=== PATIENT | female | born 1960 | race Caucasian/White ===

== ENCOUNTER 2016-11-10 16:30 | Inpatient (IN) | payer OTHER ==
[~2016-11-10] VITALS: Ht 157.5 cm; Wt 75.3 kg
--- NOTE | ~2016-11-10 | OR ---
Unit #: [id number] #: [id number] Patient: ERICTUESDAY [id number] [address] [place], [place] [address] [id number] Reji MR#: [id number] NAME: JEB REYES ROOM: 218 Date of Procedure: 11/12/2016 Admission Date: 11/11/2016 Surgeon: Liam Hernandez M.D. : 1960 Attending Physician: Jacki Saunders M.D. Primary Care Physician: Primary Care Physician No OPERATIVE REPORT ADDITIONAL ATTENDING PHYSICIAN Jacki Saunders M.D. PREOPERATIVE DIAGNOSES Alcoholic cirrhosis with ascites and hepatitis C without any treatment. PROCEDURES PERFORMED Upper gastrointestinal endoscopy. POSTOPERATIVE DIAGNOSES 1. 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 These were in the form of tongues of columnar mucosa in the distal esophagus. 2. There were no esophageal varices seen. 3. Changes of portal hypertensive gastropathy were seen in the gastric fundus. 4. Rest of the examination up to third part of duodenum was normal. RECOMMENDATIONS 1. The patient can be about 2 g sodium high-protein diet. 2. She can be discharged home from GI standpoint on the current dosing of Lasix and Aldactone. The single most important element in her long-term recovery is total and complete sobriety as well as sticking with 2 g sodium high-protein diet at home. SEDATION USED MAC. DESCRIPTION OF PROCEDURE Following detailed explanation of the potential risks and complications of an upper endoscopy, namely perforation, bleeding, and complication related to sedation, the patient was brought to GI lab and laid in the left lateral decubitus position. Lubricated tip of the Olympus video upper endoscope was passed through the bite block into the proximal esophagus under direct vision. The entire esophageal mucosa was examined and the patient was noted to have a short segment of Angeles esophagus. This was in the form of tongues of columnar mucosa near the gastroesophageal junction. No esophageal varices were seen. The scope was then advanced into the gastric cavity and the latter was insufflated. Mucosa of the fundus, body, and antrum examined and changes of portal hypertensive gastropathy were noted in the fundic mucosa. Prepyloric antral area appeared normal. Pylorus was intubated with visualization of the normal Unit #: [id number] #: [id number] Patient: BINDERY CHIEF,TUESDAY duodenal bulb and second and third part of the duodenum. Upon withdrawal and retroflexion, incisura, cardia, and greater curve examined and no additional findings noted. The scope was then withdrawn in the distal esophagus. Biopsies obtained from the distal esophageal mucosa from the Angeles segment and sent for histology. The entire esophageal mucosa was examined all the way up to pharynx. No additional findings noted. The patient tolerated the procedure without any postprocedure complications. Dictated by... Lars Miller/abad TD: 11/12/2016 17:24 JOB #: [id number] CC: Lars Strange M.D. OPERATIVE REPORT Page 1 of 1 X Liam Hernandez MD X PROCEDURE OPERATIVE NOTE
--- NOTE | ~2016-11-10 | CT2 ---
[facility] A Service of [facility] & [facility] RADIOLOGY TEXT RESULTS PATIENT: ERICTUESDAY LOCATION: [facility] 218-01 : [birth year] UNIT #: [id number] AGE: [address]: Jacki Saunders MD SEX: F ORDER DR: [id number] [facility] [address] [place], [place] [address] [id number] I MR#: [id number] Acc #: [id number] NAME: ERIC TUESDAY : 1960 SEX: F STUDY DATE/TIME: 11/10/2016 20:57 UNIT: [facility] ROOM: 218 STUDY DESCRIPTION: CT Abd and Pelv W Cont Attending Physician: Jacki Saunders M.D. Ordering Physician: Leandro Metcalf D.O. Primary Care Physician: No Primary Care Physician MEDICAL IMAGING REPORT This report is preliminary unless electronic signature is present EXAM CT scan of the abdomen and pelvis with contrast, 11/10/2016. HISTORY Abdominal distension since October 2016. Bright red blood after bowel movements for 3 weeks. Hepatitis C. TECHNIQUE Spiral CT was performed through the abdomen and pelvis following intravenous contrast administration only, as per clinician request. This CT exam was performed with one or more of the following radiation dose reduction techniques: automatic exposure control, adjustment of mA and/or kV according to patient size, and iterative reconstruction. FINDINGS ABDOMEN: The exam is limited by the lack of oral contrast. There is fatty infiltration of the liver. The liver demonstrates surface nodularity and prominence of the caudate lobe characteristic of cirrhosis. No cystic or solid mass lesions were seen in the liver. The spleen is normal in size. The pancreas, adrenal glands, and kidneys are normal. The gallbladder is distended and prominent and demonstrates a prominent enhancing wall. There are gallstones along the dependent portion of the gallbladder. If there is clinical concern for cholecystitis, recommend correlation with gallbladder ultrasound. There is no intra or extrahepatic biliary ductal dilatation. PELVIS FINDINGS: There is moderate amount of ascites within the peritoneal cavity. Colonic diverticulosis is noted. Question is raised of some thickening of the wall of the ascending and proximal transverse colon. This may be artifactual and due to under distension of the colon as no oral contrast was administered. Recommend clinical correlation to exclude inflammatory or infectious colitis. No adenopathy is seen. No STS. [facility] A Service of [facility] RADIOLOGY TEXT RESULTS PATIENT: ERIC,TUESDAY LOCATION: [facility] 218-01 : [birth year] UNIT #: [id number] AGE: [address]: Jacki Saunders MD SEX: F ORDER DR: abscess is seen. Images of the lung bases demonstrate atelectasis at the right base. IMPRESSION 1. Exam is severely limited by the lack of oral contrast. 2. Findings characteristic of hepatic cirrhosis. No mass is seen within the liver. 3. Gallbladder is distended and demonstrates a prominent enhancing wall and gallstones are seen along the dependent portion of the gallbladder. If there is clinical concern for cholecystitis, recommend correlation with gallbladder ultrasound. 4. Moderate ascites. 5. Question is raised of some possible thickening of the wall of the ascending colon and transverse colon. This may be artifactual and related to the lack of oral contrast. Recommend clinical correlation to exclude inflammatory or infectious colitis. 6. Portal hypertension with recanalization of the umbilical vein is noted. Dictated by... Lobo Greene M.D. THIS IS AN ELECTRONICALLY VERIFIED REPORT Lobo Greene M.D. at 11/11/2016 10:22 AM CLARI/alfonzo TD: 11/11/2016 09:26 JOB #: [id number] MEDICAL IMAGING REPORT Page 1 of 1 COPY
--- NOTE | ~2016-11-10 | HP ---
Unit #: [id number] #: [id number] Patient: ERIC [id number] [address] [place], [place] [address] [id number] I MR#: [id number] NAME: ERIC TUESDAY ROOM: 218 Age: 56 Sex: F Admission Date: 11/11/2016 : 1960 Attending Physician: Jocelyne Malhotra M.D. Primary Care Physician: No Primary Care Physician HISTORY AND PHYSICAL CHIEF COMPLAINT Ascites and jaundice x1 month. HISTORY This pleasant 56-year-old female with history of hepatitis C, chronic headaches, alcohol abuse, is admitted for abdominal swelling. Patient states that she has been seeing her primary care physician at the [facility] for abdominal welling. Underwent a CT scan. Notes that she has been experiencing darker urine, along with scleral icterus. Presents to this emergency department where she has obvious ascites on exam but a nontender abdomen. CT scan was a limited study but did show cirrhosis, along with gallstones and a distended bladder. Moderate ascites, questionable thickening of the colonic wall. The patient was referred to oral surgery technician as an outpatient but has not yet seen him. Does note bright red blood per rectum, separate from the stool for the past three days. Patient is a heavy drinker, but has cut down to two 6 oz of hard liquor daily. Denies withdrawal symptoms. PAST MEDICAL HISTORY 1. Hepatitis C. 2. Chronic headache. 3. Hypertension. 4. Cervical dysplasia. 5. Rectal and genital warts. 6. D and C. ALLERGIES No known drug allergies. HOME MEDICATIONS P.r.n. ibuprofen 800 mg; Norvasc daily; Chantix. FAMILY HISTORY COPD, CAD. SOCIAL HISTORY The patient lives alone with her cat. She smokes about 1/2 pack per day of tobacco. Was drinking up to half of a fifth a day but cut down to two 6 oz of hard liquor daily. Does not use illicit drugs. REVIEW OF SYSTEMS Notable for jaundice, dark urine, rectal bleeding, increasing abdominal swelling, pedal edema, hypertension, chronic headaches, hepatitis C, Unit #: [id number] #: [id number] Patient: ERIC alcohol abuse, cervical and rectal warts, D and C tobacco abuse, cervical dysplasia. All other systems were reviewed and otherwise negative. PHYSICAL EXAMINATION GENERAL: Pleasant, mildly jaundice appearing, 56-year-old, moderately obese female currently in no acute distress. VITAL SIGNS: Temperature 98.3, pulse 104, respirations 16, blood pressure 137/89, O2 saturation is 100% on room air. HEENT: Eyes - PERRLA. Extraocular muscles are intact. Icterus is noted. Pharynx is benign. NECK: Supple without adenopathy or thyromegaly. CHEST: Clear. CARDIAC: Normal S1 and S2 without definite murmur. Telangiectasia is noted over the chest. ABDOMEN: Bowel sounds are present. Abdomen is distended but not particularly tender. There is a fluid wave. No definite hepatosplenomegaly or masses. EXTREMITIES: 2-3+ bilateral pedal edema. Pedal pulses are present. RECTAL: Heme negative. There are warts noted externally. NEUROLOGIC: Patient is awake, alert, and oriented. Cranial nerves are intact. Equal strength throughout. Negative asterixis. Negative tremor. DIAGNOSTIC STUDIES ADMISSION LABS: Hematocrit is 31.4, MCV 101.7, white blood count is 14.2, normal platelet count. INR is 1.4, PTT 31.5. SMA 12 - calcium 7.7, albumin 2.2, bilirubin is 4, mostly direct, AST 154, ALT 53, alk phos 186, normal amylase and lipase. Urinalysis - trace leukocyte esterase, trace protein, trace bile with 5-10 white cells, 4+ bacteria. IMAGING STUDIES: CT scan limited due to noncontrasted study. Cirrhosis, distended gallbladder with gallstones. Moderate ascites. Questionable thickening of the colon wall. This could be artifactual. ASSESSMENT 1. 56-year-old female with hepatitis C and alcohol abuse who presents with cirrhosis, increasing ascites and jaundice for the past month. Does have pedal edema as well. 2. Hepatitis C. 3. Alcohol abuse. 4. History of hypertension on Norvasc. 5. Cervical dysplasia with genital and rectal warts. 6. Chronic headaches. 7. Questionable UTI. 8. Gallstones. 9. Rectal bleeding x3 days, although patient currently is heme negative. PLANS 1. Large volume paracentesis and some fluid. 2. Vitamins and Ativan. 3. GI consultation. 4. Change Norvasc to spironolactone. 5. I did discuss with this patient, the need to stop drinking. 6. SCDs for DVT prophylaxis. 7. Antibiotics pending urine cultures. 8. Check ammonia level. 1. Dictated by Unit #: [id number] #: [id number] Patient: MOTORIZED SQUAD LIEUTENANTJEB Jocelyne Malhotra M.D. AML/ts TD: 11/11/2016 06:09 JOB #: [id number] CC: Counts Include [facility] At [facility]. HISTORY AND PHYSICAL Page 1 of 1 X Jocelyne Malhotra MD X HISTORY AND PHYSICAL
--- NOTE | ~2016-11-10 | XA170 ---
[facility] A Service of [facility] RADIOLOGY TEXT RESULTS PATIENT: ERICTUESDAY LOCATION: [facility] 218-01 : [birth year] UNIT #: [id number] AGE: [address]: Jacki Saunders MD SEX: F ORDER DR: [id number] [facility] [address] [place], [place] [address] [id number] I MR#: [id number] Acc #: [id number] NAME: ERIC TUESDAY : 1960 SEX: F STUDY DATE/TIME: 11/11/2016 8:06 UNIT: [facility] ROOM: 218 STUDY DESCRIPTION: XA Paracentesis W Image Attending Physician: Jacki Saunders M.D. Ordering Physician: Leandro Metcalf D.O. Primary Care Physician: No Primary Care Physician MEDICAL IMAGING REPORT This report is preliminary unless electronic signature is present EXAM Ultrasound-guided paracentesis HISTORY Ascites. Liver disease. DESCRIPTION OF PROCEDURE Procedure explained the patient including risks, benefits and complications. Informed consent was obtained and a formal time-out procedure was utilized. The largest pocket of fluid was on the left. It was marked with ultrasound prior to the procedure. The skin was then prepped with ChloraPrep and draped with sterile drapes. Using sterile technique and following local anesthesia with 1% Xylocaine a sheath needle was placed into the fluid. Total 3.1 L of fluid was aspirated. Some of the fluid was sent for laboratory analysis as requested by the ordering service. Patient tolerated the procedure well. IMPRESSION Successful ultrasound guided left paracentesis with 3.1 L of fluid obtained. Dictated by... Darion Christianson M.D. THIS IS AN ELECTRONICALLY VERIFIED REPORT Darion Christianson M.D. at 11/12/2016 4:43 PM GRIS/corby TD: 11/11/2016 19:51 JOB #: [id number] [facility] A Service of [facility] RADIOLOGY TEXT RESULTS PATIENT: LENNY REYESAY LOCATION: [facility] 218-01 [facility] #: [id number] : [birth year] UNIT #: [id number] AGE: [address]: Jacki Saunders MD SEX: F ORDER DR: MEDICAL IMAGING REPORT Page 1 of 1 COPY
--- NOTE | ~2016-11-10 | DS ---
Unit #: [id number] #: [id number] Patient: ERIC [id number] [address] [address] [id number] I MR#: [id number] NAME: ERIC TUESDAY ROOM: 218 Age: 56 Sex: F Admission Date: 11/11/2016 : 1960 Discharge Date: 11/13/2016 Attending Physician: Jacki Saunders M.D. Primary Care Physician: Jessica Primary Care Physician DISCHARGE SUMMARY ADMITTING DIAGNOSES 1. Ascites. 2. Jaundice. DISCHARGE DIAGNOSES 1. Cirrhosis of the liver secondary to hepatitis C as well as alcohol abuse. 2. Ascites. 3. Gallstones. 4. Anemia. 5. History of hepatitis C. 6. History of rectal and genital warts. 7. History of cervical dysplasia. HOSPITAL COURSE This is a 56-year-old female who presented to the emergency room for the discoloration of her eyes. On admission, she was found to have moderate ascites. CT scan of the abdomen showed distended gallbladder with some gallstones, moderate ascites with thickening of the colonic wall. She was seen by the dude ranch manager, Dr. Hernandez. The patient underwent paracentesis, started on spironolactone and furosemide. The patient had also paracentesis done. The patient is stable. She was also treated with the IV antibiotics with ceftriaxone. She is stable at this time to be discharged home to be followed by Dr. Hernandez. PROCEDURE 1. EGD which showed the Angeles esophagus. 2. Paracentesis for the ascites. DISCHARGE MEDICATIONS 1. Spironolactone 100 mg daily. 2. Furosemide 20 mg daily in the morning. 3. Thiamine 100 mg daily. 4. Multivitamin daily. 5. Keppra 250 mg p.o. at bedtime. 6. Atorvastatin 40 mg daily at bedtime. DISCHARGE INSTRUCTIONS Follow with Dr. Hernandez in one week. Follow with primary care physician in one to two weeks. Unit #: [id number] #: [id number] Patient: ERICTUESDAY Dictated by... Lars Doan TD: 11/15/2016 09:27 JOB #: [id number] DISCHARGE SUMMARY Page 1 of 1 X Zbigniew Bradshaw MD X DISCHARGE SUMMARY
--- NOTE | ~2016-11-10 | CO ---
Unit #: [id number] #: [id number] Patient: ERICTUESDAY [id number] [facility]. [place], [place] [address] [id number] I MR#: [id number] NAME: ERIC JEB ROOM: 218 Age: 56 Sex: F Admission Date: 11/11/2016 : 1960 Attending Physician: Jacki Saunders M.D. Primary Care Physician: Primary Care Physician No Consultation Date: 11/11/2016 CONSULTATION REPORT ADDITIONAL ATTENDING PHYSICIAN Jacki Saunders M.D. REASON FOR CONSULTATION Cirrhosis and ascites. HISTORY OF PRESENT ILLNESS Ms. Alex is a 56-year-old white female, who lives at home by herself along with her cat. The patient drinks 1/5th of a vodka or whiskey on a daily basis for many years and has presented with worsening swelling over the abdomen due to large tense ascites. She is status post paracentesis and now feels better. She also mentions having poor appetite as a result of marked abdominal distention. There is no history suggestive of overt gastrointestinal bleed nor any history of mental confusion. PAST MEDICAL HISTORY Significant for history of untreated hepatitis C. The patient mentions that she had genital warts and these were treated with infected instruments; although, it is unclear as to how that would have happened. She also has history of hypertension, cervical dysplasia. PAST SURGICAL HISTORY Included a D and C and rectal genital warts. ALLERGIES She has no known drug allergies. MEDICATIONS At home included ibuprofen and Norvasc as well as Chantix. FAMILY HISTORY Coronary artery disease. SOCIAL HISTORY She lives at home herself with a cat. Smokes half pack of cigarette per day and drinks up to half to 1/5th of vodka daily. Does not use any recreational drugs. Denies any history of intravenous drug use. REVIEW OF SYSTEMS Detailed review of organ systems does not reveal any recent weight loss. No history of fever, chills, or rigors. No history of headache, seizures, chest pain, or syncope. No history of cough, expectoration, or hemoptysis. No history of dysuria, hematuria, or pyuria. No history of focal seizures or extremity weakness. Rest of review of organ systems is Unit #: [id number] #: [id number] Patient: CRITICAL CARE EDUCATOR,TUESDAY unremarkable. PHYSICAL EXAMINATION GENERAL: She is awake, alert, and oriented, and has obvious rotund abdomen due to large ascites. HEENT: She has a tinge of icterus. There is mild pallor. No lymphadenopathy, and has grade 2 pitting peripheral edema. CARDIOVASCULAR: Reveal normal heart sounds. No murmurs on auscultation. LUNGS: Reveals normal breath sounds. Good air entry. ABDOMEN: Soft. Status post paracentesis. Hernia sites are normal. Bowel sounds normal. DIAGNOSTIC STUDIES LABORATORY RESULTS: Shows a sodium and potassium of 133 and 3.4. BUN and creatinine 7 and 0.8. Total bilirubin is 4.5. AST, ALT, and alkaline phosphatase is 133, 46, and 113. Ammonia level is 49. The patient does have mild thrombocytopenia with a platelet count of 100 and coagulopathy with INR of 1.4. Her MCV is 100 and hemoglobin is 9.5. White count was 14,000 yesterday and 1000 today. The ascitic fluid analysis suggests high gradient ascites consistent with portal hypertension, and no evidence of spontaneous picture of peritonitis. CLINICAL IMPRESSION The patient with cirrhosis, ascites, and malnutrition along with coagulopathy, thrombocytopenia on a background of continued tobacco and alcohol abuse as well as chronic hepatitis C. The crocker determinant of her well-being will be long-term sobriety. In addition, considerable discussion was held regarding 2 g sodium high-protein diet and how to do that at home in practical terms. An index endoscopy is also warranted to look for any esophageal varices. Lastly, the patient was also advised to stop smoking. Thank you for asking me to see this pleasant woman. I appreciate the consult. Dictated by... Lars Miller/abad TD: 11/11/2016 17:32 JOB #: [id number] CC: Lars Strange M.D. CONSULTATION REPORT Page 1 of 1 X Liam Hernandez MD X CONSULTATION REPORT
[2016-11-10 17:43] LABS: BASOPHIL# 0.1 X10e3 (0-0.3); BASOPHIL% 0.7 % (0-2.5); EOSINOPHIL# 0.1 X10e3 (0-0.7); EOSINOPHIL% 0.4 % (0.0-7.0); HEMATOCRIT 31.4 % (35.0-45.0); HEMOGLOBIN 10.4 gm/dL (12.0-16.0); LYMPHOCYTE# 2.5 X10e3 (1.0-3.5); LYMPHOCYTE% 17.5 % (17.0-45.0); MEAN CELL VOLUME 101.7 FL (83-96); MEAN CORPUSCULAR HEMOGLOBIN 33.7 PG (28-34); MEAN CORPUSCULAR HGB CONC 33.2 g/dL (30-36); MONOCYTE# 1.3 X10e3 (0-1.0); MONOCYTE% 9.2 % (3.0-12.0); NEUTROPHIL# 10.3 X10e3 (1.5-7.1); NEUTROPHIL% 72.2 % (40-75); PLATELET COUNT 158 X10e3 (140-420); RED BLOOD COUNT 3.08 X10e (3.90-5.30); RED CELL DISTRIBUTION WIDTH 19.5 % (11.0-15.5); WHITE BLOOD COUNT 14.2 X10e3 (4.0-10.5)
[2016-11-10 17:45] LABS: DIFF IND NO
[2016-11-10 18:08] LABS: ALBUMIN SERUM 2.2 g/dL (3.5-5.0); BILIRUBIN, DIRECT 2.1 mg/dL (0.0-0.2); BILIRUBIN,INDIRECT 1.9 mg/dL (0.0-0.9); BUN/CREATININE RATIO 8.75; CALCIUM SERUM 7.7 mg/dL (8.4-10.2); CREATININE SERUM 0.8 mg/dL (0.6-1.4); GLOM FILT RATE Estimated 83.7 mL/min (>60); POTASSIUM 3.6 mmol/L (3.5-5.1); PROTEIN TOTAL SERUM 7.9 g/dL (6.0-8.3)
[2016-11-10 19:33] LABS: INR 1.4; PROTHROMBIN TIME (PATIENT) 14.7 SECONDS (10.0-11.7)
[2016-11-10 20:37] LABS: URINE SOURCE CLEAN CATCH
[2016-11-10 20:43] LABS: URINE APPEARANCE CLOUDY; URINE BLOOD NEG (NEG); URINE COLOR DK YELLOW; URINE GLUCOSE NEG (NEG); URINE KETONE TRACE (NEG); URINE LEUKOCYTE ESTERASE TRACE (NEG); URINE NITRATE NEG (NEG); URINE PH 5.5 (5-8); URINE PROTEIN TRACE (NEG)
[2016-11-10 20:45] LABS: CULTURE INDICATED? YES; URBCS1 AUWI 0-2 /[HPF] (0-2); URINE BACTERIA AUWI 4+ (NEGATIVE); URINE SQUAMOUS EPITHELIAL CELL FEW /[HPF]
[2016-11-10 20:55] LABS: URINE BILIRUBIN POS (NEG)
[2016-11-11] MEDS ORDERED: IBUPROFEN800 MG PO (03:47)
[2016-11-11] MEDS ORDERED: B COMPLEX1 EACH PO (03:49)
[2016-11-11] MEDS ORDERED: KEPPRA250 MG PO (03:50)
[2016-11-11] MEDS ORDERED: NORVASC PO (03:50)
[2016-11-11] MEDS ORDERED: LIPITOR40 MG PO (03:51)
[2016-11-11 07:37] LABS: BASOPHIL# 0.1 X10e3 (0-0.3); BASOPHIL% 0.8 % (0-2.5); EOSINOPHIL% 0.6 % (0.0-7.0); HEMATOCRIT 27.2 % (35.0-45.0); HEMOGLOBIN 9.5 gm/dL (12.0-16.0); LYMPHOCYTE# 1.7 X10e3 (1.0-3.5); LYMPHOCYTE% 20.7 % (17.0-45.0); MEAN CELL VOLUME 100.7 FL (83-96); MEAN CORPUSCULAR HEMOGLOBIN 35.3 PG (28-34); MEAN CORPUSCULAR HGB CONC 35.1 g/dL (30-36); MEAN PLATELET VOLUME 9.4 FL (6.5-11.5); MONOCYTE# 0.9 X10e3 (0-1.0); NEUTROPHIL# 5.4 X10e3 (1.5-7.1); NEUTROPHIL% 66.9 % (40-75); RED CELL DISTRIBUTION WIDTH 19.1 % (11.0-15.5); WHITE BLOOD COUNT 8.1 X10e3 (4.0-10.5)
[2016-11-11 07:38] LABS: PLATELET COUNT 100 X10e3 (140-420)
[2016-11-11 07:40] LABS: DIFF IND NO
[2016-11-11 08:15] LABS: ALBUMIN SERUM 1.9 g/dL (3.5-5.0); BILIRUBIN,TOTAL 4.5 mg/dL (0.2-2.0); BUN/CREATININE RATIO 8.57; CALCIUM SERUM 7.4 mg/dL (8.4-10.2); CREATININE SERUM 0.7 mg/dL (0.6-1.4); GLOM FILT RATE Estimated 98.2 mL/min (>60); POTASSIUM 3.4 mmol/L (3.5-5.1); PROTEIN TOTAL SERUM 6.7 g/dL (6.0-8.3)
[2016-11-11 11:13] LABS: BODY FLUID APPEARANCE CLEAR; BODY FLUID SOURCE PARACENTESIS
[2016-11-11 11:14] LABS: BF TOTAL NUCLEATED CELL COUNT 191 CMM (0-100); BODY FLUID RBC 423 CMM
[2016-11-12 05:39] LABS: HEMATOCRIT 27.6 % (35.0-45.0); HEMOGLOBIN 9.5 gm/dL (12.0-16.0); MEAN CELL VOLUME 101.7 FL (83-96); MEAN CORPUSCULAR HGB CONC 34.4 g/dL (30-36); MEAN PLATELET VOLUME 9.5 FL (6.5-11.5); RED BLOOD COUNT 2.72 X10e (3.90-5.30); RED CELL DISTRIBUTION WIDTH 19.4 % (11.0-15.5); WHITE BLOOD COUNT 7.2 X10e3 (4.0-10.5)
[2016-11-12 06:52] LABS: ALBUMIN SERUM 1.7 g/dL (3.5-5.0); BILIRUBIN,TOTAL 3.4 mg/dL (0.2-2.0); BUN/CREATININE RATIO 8.57; CALCIUM SERUM 7.6 mg/dL (8.4-10.2); CREATININE SERUM 0.7 mg/dL (0.6-1.4); GLOM FILT RATE Estimated 98.2 mL/min (>60); POTASSIUM 4.6 mmol/L (3.5-5.1); PROTEIN TOTAL SERUM 6.2 g/dL (6.0-8.3)
[2016-11-13 05:37] LABS: HEMOGLOBIN 9.9 gm/dL (12.0-16.0); MEAN CELL VOLUME 101.7 FL (83-96); MEAN CORPUSCULAR HEMOGLOBIN 34.8 PG (28-34); MEAN CORPUSCULAR HGB CONC 34.3 g/dL (30-36); MEAN PLATELET VOLUME 9.9 FL (6.5-11.5); RED BLOOD COUNT 2.85 X10e (3.90-5.30); RED CELL DISTRIBUTION WIDTH 19.4 % (11.0-15.5); WHITE BLOOD COUNT 8.4 X10e3 (4.0-10.5)
[2016-11-13 06:05] LABS: BUN/CREATININE RATIO 7.5; CALCIUM SERUM 7.4 mg/dL (8.4-10.2); CREATININE SERUM 0.8 mg/dL (0.6-1.4); GLOM FILT RATE Estimated 83.7 mL/min (>60); MAGNESIUM 1.6 mg/dL (1.6-3.0); POTASSIUM 3.8 mmol/L (3.5-5.1)
[2016-11-13] MEDS ORDERED: SPIRONOLACTONE100 MG PO (09:26)
[2016-11-13] MEDS ORDERED: THIAMINE HCL100 M2 PO (09:26)
[2016-11-13] MEDS ORDERED: LASIX20 MG PO (09:27)
== END 2016-11-13 10:51 | disposition home or self-care (01) | DRG 433 ==
LOC: CED 16:30 → CEDOF 11-11 01:00 → CED 11-11 01:08 → C2A 11-11 02:51 → CEDOF 11-11 02:51 → C2A 11-11 08:56
PROVIDERS: Emergency Medicine; Internal Medicine; Internal Medicine Gastroenterology; Nurse Practitioner
PROC: 0W9G3ZZ Drainage of Peritoneal Cavity, Percutaneous Approach (ICD-10-PCS; 2016-11-11)
PROC: 0DB38ZX Excision of Lower Esophagus, Via Natural or Artificial Opening Endoscopic, Diagnostic (ICD-10-PCS; principal; 2016-11-12 15:40)
DX: K70.31 Alcoholic cirrhosis of liver with ascites (principal); K76.6 Portal hypertension; D69.6 Thrombocytopenia, unspecified; E46 Unspecified protein-calorie malnutrition; K62.5 Hemorrhage of anus and rectum; N39.0 Urinary tract infection, site not specified; R51 Headache; N87.9 Dysplasia of cervix uteri, unspecified; F10.10 Alcohol abuse, uncomplicated; F17.210 Nicotine dependence, cigarettes, uncomplicated; K80.80 Other cholelithiasis without obstruction; B18.2 Chronic viral hepatitis C; K22.70 Barrett's esophagus without dysplasia; K31.89 Other diseases of stomach and duodenum; Z71.6 Tobacco abuse counseling; D53.9 Nutritional anemia, unspecified; B96.20 Unspecified Escherichia coli [E. coli] as the cause of diseases classified elsewhere
CPT/HCPCS: 74177; 80048; 80053; 80076; 81003; 82042; 82140; 82150; 83690; 83735; 85025; 85027; 85610; 85730; 86850; 86900; 86901; 87070; 87086; 87186; 87205; 87806; 88305; 89051; J0696; J2250; Q9967